=== PATIENT | male | born 1970 | race Two or more races ===

== ENCOUNTER 2019-04-18 10:25 | Emergency (ER) | payer OTHER ==
[~2019-04-18] VITALS: Ht 165.1 cm; Wt 60.8 kg
[2019-04-18] MEDS ORDERED: ACYCLOVIR 200 MG CAPSULE PO ONE (11:00)
[2019-04-18] MEDS ORDERED: predniSONE 10 MG TABLET PO ONE (11:00)
[2019-04-18] MEDS ORDERED: ACYCLOVIR 200 MG CAPSULE ONE (11:05)
[2019-04-18] MEDS ORDERED: predniSONE 20 MG TABLET ONE (11:05)
[2019-04-18 11:11] VITALS: BP 136/92
== END 2019-04-18 11:39 | disposition home or self-care (01) ==
LOC: ER 10:31
DX: G51.0 Bell's palsy (principal)
CPT/HCPCS: 70450; 99284; J7512